=== PATIENT | male | born 1990 | race Hispanic/Latino ===

== ENCOUNTER 2016-07-24 12:08 | Emergency (ER) | payer BC ==
[2016-07-24 12:09] VITALS: BMI 22.8
[2016-07-24] MEDS ORDERED: Alum-Mag Hydrox-Simethicone Susp (30 mL) ONE (14:06)
[2016-07-24 14:23] LABS: ADD MANUAL DIFF? NO
--- NOTE | 2016-07-24 14:33 | ED PDOC ---
Arrival/HPI - General Time Seen by Provider: 07/24/16 14:25 Historian: Patient - History of Present Illness Narrative History of Present Illness (Text): 07/24/16 13:40 Ousmane Estrada is a 25 year old male who presents to the emergency department complaining of intermittent lower abdominal pain for 2 days. Patient states that he also experiences associated fever, chill, body aches, and vomiting. Patient states that his pain comes every 20-30 minutes with intense lower abdominal pain at 5 minute intervals. Patient also states that he has had multiple episodes of diarrhea which later became a little bloody. Patient says he took Pepto Bismol and Tylenol for the pain which brought little relief. Patient denies any trauma, injury, urinary symptoms, or any other complaint at this time. PMD: Dr. Cuevas Time/Duration: < week Symptom Onset: Gradual Symptom Course: Worsening Severity Level: Mild Activities at Onset: Light Context: Home Past Medical History - Provider Review Nursing Documentation Reviewed: Yes - Psychiatric Hx Depression: No Hx Emotional Abuse: No Hx Physical Abuse: No Hx Substance Use: No - Suicidal Assessment Feels Threatened In Home Enviroment: No Family/Social History - Physician Review Nursing Documentation Reviewed: Yes Family/Social History: No Known Family HX Hx Alcohol Use: No Hx Substance Use: No Hx Substance Use Treatment: No Allergies/Home Meds Allergies/Adverse Reactions: Allergies No Known Allergies Allergy (Verified 08/11/11 02:24) pt staes I have no allergies Review of Systems - Review of Systems Constitutional: Fevers, Other (generalized body aches). absent: Night Sweats Eyes: absent: Vision Changes ENT: absent: Hearing Changes Respiratory: absent: SOB, Cough Cardiovascular: absent: Chest Pain Gastrointestinal: Abdominal Pain, Diarrhea, Vomiting, Hematochezia. absent: Nausea Genitourinary Male: absent: Dysuria, Frequency, Urinary Output Changes Musculoskeletal: absent: Arthralgias Skin: absent: Rash Neurological: absent: Headache Endocrine: absent: Diaphoresis Hemo/Lymphatic: absent: Adenopathy Psychiatric: absent: Depression Physical Exam - Physical Exam Narrative Physical Exam (Text): Constitutional: No acute distress. Head: Normocephalic. Atraumatic. Eyes: PERRL. ENT: Moist mucous membranes. Neck: Supple. Cardiovascular: Regular rate. Chest: No tenderness. Respiratory: Clear to auscultation bilaterally. GI: Circumcised. No testicle tenderness. No discharge. No rebound/guarding to abdomen. Back: No CVA tenderness. Musculoskeletal: No tenderness or swelling of extremities. Skin: No rash. Neurologic: Alert, no focal deficit. Medical Decision Making ED Course and Treatment: 07/24/16 13:40 Impression: 25 year old male complaining of lower abdominal pain for two days. Plan: -- Reassess and disposition Progress Notes: 07/24/16 14:57 Patient states he feels much better at this time and he has stopped having his abdominal pain while in the ER. Labs are unremarkable. Will discharge patient, continue Pepcid/Complete, Zofran, PO fluids, f/u PMD, return to the ER for worsening pain, fever, vomiting, bleeding, or any other problem. - Lab Interpretations Lab Results: 07/24/16 13:00 07/24/16 13:00 Lab Results 07/24/16 13:00: PT 11.3, INR 1.05, APTT 29.9 07/24/16 13:00: Sodium 138, Potassium 4.2, Chloride 99, Carbon Dioxide 29, Anion Gap 14, BUN 10, Creatinine 1.0, Est GFR ( Amer) > 60, Est GFR (Non- Af Amer) > 60, Random Glucose 93, Calcium 9.5, Total Bilirubin 0.8, AST 34, ALT 33, Alkaline Phosphatase 74, Total Protein 7.7, Albumin 4.5, Globulin 3.1, Albumin/Globulin Ratio 1.5, Lipase 28 07/24/16 13:00: WBC 8.0, RBC 4.99, Hgb 15.2, Hct 43.0, MCV 86.2, MCH 30.5, MCHC 35.3, RDW 13.0, Plt Count 128, MPV 10.6, Gran % 84.2 H, Lymph % (Auto) 7.1 L, [place] % (Auto) 8.1 H, Eos % (Auto) 0.3 L, Baso % (Auto) 0.3, Gran # 6.73 H, Lymph # 0.6 L, [place] # 0.7 H, Eos # 0.0, Baso # 0.02 - Medication Orders Current Medication Orders: Discontinued Medications Al Hydrox/Mg Hydrox/Simethicone (Maalox Plus 30 Ml) Confirm Administered Dose 30 ml .ROUTE .STK-MED ONE Stop: 07/24/16 14:07 Famotidine (Pepcid) Confirm Administered Dose 20 mg .ROUTE .STK-MED ONE Stop: 07/24/16 14:07 Ondansetron HCl (Zofran Inj) Confirm Administered Dose 4 mg .ROUTE .STK-MED ONE Stop: 07/24/16 14:07 - Scribe Statement The provider has reviewed the documentation as recorded by the Domenica Ag Provider Scribe Attestation: All medical record entries made by the Preethiibjh were at my direction and personally dictated by me. I have reviewed the chart and agree that the record accurately reflects my personal performance of the history, physical exam, medical decision making, and the department course for this patient. I have also personally directed, reviewed, and agree with the discharge instructions and disposition. Disposition/Present on Arrival - Present on Arrival Any Indicators Present on Arrival: No History of DVT/PE: No History of Uncontrolled Diabetes: No Urinary Catheter: No History Surgical Site Infection Following: None - Disposition Have Diagnosis and Disposition been Completed?: Yes Diagnosis: Vomiting and diarrhea Disposition: HOME/ ROUTINE Disposition Time: 14:58 Patient Plan: Discharge Patient Problems: Current Active Problems Problem Status Onset Vomiting and diarrhea Acute Condition: STABLE Discharge Instructions (ExitCare): Gastroenteritis (ED) Prescriptions: Famotidine/Ca Carb/Mag Hydrox [Pepcid Complete Tablet Chew] 1 each PO BID #28 tab.chew Ondansetron ODT [Zofran ODT] 4 mg PO Q8 #12 odt Referrals: Jag Cuevas MD [Primary Care Provider] - Follow up with primary
[2016-07-24 14:39] LABS: ALB/GLOB RATIO 1.5 (1.1-1.8); ALKALINE PHOSPHATASE 74 U/L (38-133); ALT/SGPT 33 U/L (7-56); AST/SGOT 34 U/L (15-59); BILIRUBIN,TOTAL 0.8 mg/dL (0.2-1.3); BLOOD UREA NITROGEN 10 mg/dL (7-21); CALCIUM 9.5 mg/dL (8.4-10.5); CARBON DIOXIDE 29 mmol/L (21-33); CHLORIDE 99 mmol/L (98-107); GFR AFRICAN-AMERICAN > 60; GLUCOSE,RANDOM 93 mg/dL (70-110); LIPASE 28 U/L (23-300); POTASSIUM 4.2 mmol/L (3.6-5.0); SODIUM 138 mmol/L (132-148); TOTAL PROTEIN 7.7 g/dL (5.8-8.3)
[2016-07-24 14:41] LABS: INR 1.05 (0.93-1.08); PARTIAL THROMBOPLASTIN TIME 29.9 Seconds (23.7-30.8)
[2016-07-24 14:52] LABS: BASO # 0.02 K/mm3 (0.0-2.0); BASO % 0.3 % (0.0-3.0); EOS % 0.3 % (1.5-5.0); GRAN # 6.73 (1.4-6.5); GRAN % 84.2 % (50.0-68.0); LYMPH # 0.6 (1.2-3.4); LYMPH % 7.1 % (22.0-35.0); MEAN CELL VOLUME 86.2 fL (80.0-105.0); MEAN CORPUSCULAR HEMOGLOBIN 30.5 pg (25.0-35.0); MEAN CORPUSCULAR HGB CONC 35.3 g/dl (31.0-37.0); MEAN PLATELET VOLUME 10.6 fl (7.0-11.0); MONO # 0.7 (0.1-0.6); MONO % 8.1 % (1.0-6.0); PLATELET COUNT 128 10^3/uL (120.0-450.0)
[2016-07-24 15:25] LABS: PH,URINE 6.5 (4.7-8.0); URINE APPEARANCE CLEAR (CLEAR); URINE BILIRUBIN NEGATIVE (NEGATIVE); URINE BLOOD NEGATIVE (NEGATIVE); URINE COLOR YELLOW (YELLOW); URINE GLUCOSE (UA) NEGATIVE (NEGATIVE); URINE KETONE 15 mg/dL (NEGATIVE); URINE LEUKOCYTE ESTERASE NEGATIVE Leu/uL (NEGATIVE); URINE PROTEIN NEGATIVE mg/dL (<30 mg/dL); URINE UROBILINOGEN 0.2 E.U./dL (<1 E.U./dL)
== END 2016-07-24 15:15 | disposition home or self-care (01) ==
LOC: ED 12:08
DX: R19.7 Diarrhea, unspecified (principal); R11.10 Vomiting, unspecified